=== PATIENT | male | born 1990 ===

== ENCOUNTER 2024-01-31 09:11 | Emergency (ER) | payer MEDICAID, SELFPAY ==
[2024-01-31 09:16] VITALS: BP 141/85; PULSE 63; RESP 16; TEMP 36.2; O2SAT 99; BMI 28.2
--- NOTE | 2024-01-31 10:32 | ED_ITS ---
HPI - Dental/Oral General Chief complaint: Dental/Oral Stated complaint: wisdom tooth pain Time Seen by Provider: 01/31/24 09:45 Source: patient and RN notes reviewed Mode of arrival: ambulatory Limitations: no limitations History of Present Illness ED Provider: Ting Larry PA-C HPI Narrative: This is a 33-year-old male, with no known medical problems, who presents emergency department with complaints of left upper dental pain for the last 3 days. He has known dental fractures in his teeth and has not been able to see a dentist. He recently relocated from [place] and is unable to see a dentist for 3 months. Denies any fevers or chills. No difficulty swallowing. He has been taking panadol for his symptoms which has provided him with minimal relief. No other complaints or concerns at this time. MD Complaint: tooth pain Location: Tooth # (14-15) Onset (ago): day(s) Duration: constant Severity: moderate Relieving factors: nothing Exacerbating factors: nothing Context: history of dental caries and poor dental care Treatment prior to arrival: none Related Data Previous Rx's ?Medication ?Instructions ?Recorded acetaminophen 500 mg tablet 500 mg PO Q6H PRN pain #30 tabs 01/31/24 (Tylenol Extra Strength) amoxicillin 875 mg-potassium 1 tab PO BID 7 days #14 tabs 01/31/24 clavulanate 125 mg tablet ibuprofen 600 mg tablet 600 mg PO Q6H PRN pain #30 tabs 01/31/24 Allergies Allergy/AdvReac Type Severity Reaction Status Date / Time No Known Allergies Allergy Verified 01/31/24 09:17 Review of Systems Review of Systems: Yes all other systems are reviewed and are negative Constitutional: Constitutional: Reports as per [facility] Past Medical History Attestation statement: The following information was validated with the patient. Social History Social History Advance Directives: No Advance Directives Information Provided: No Do you have a plan to hurt others: No Plan Physical Exam Vital Signs: Vital Signs: Last Vital Signs Temp 97.2 F 01/31/24 09:16 Pulse 63 01/31/24 09:16 Resp 16 01/31/24 09:16 BP 141/85 H 01/31/24 09:16 Pulse Ox 99 01/31/24 09:16 O2 Del Method Room Air 01/31/24 09:16 BMI result Body Mass Index 28.2 Const: General: cooperative, comfortable and no acute distress Orientation/consciousness: patient oriented x3 Limitations: no limitations HEENT: Other: Left upper dentition in poor repair, tooth 14. Fifteen are decayed. No rachelle rounding gingival erythema, edema or fluctuance. Head: Yes normal to inspection, Yes normocephalic and Yes atraumatic Ears: hearing grossly normal bilaterally General nose exam: Normal external nose present Face and sinus: Yes normal facial exam Mouth: Normal oral and palatal mucosa present, oropharynx normal and moist mucous membranes Throat: Yes posterior oropharynx normal Eyes: General: appearance normal, both eyes and all related structures Eyelids: Yes eyelids normal Conjunctivae: conjunctivae normal Sclerae: sclerae normal Pupils: Equal, round and reactive pupils present EOM: EOMs intact bilaterally Neck: Neck: Yes normal visual inspection, Yes full ROM and Yes no lymphadenopathy Lymphatic: no lymphadenopathy noted Chest: Chest palpation & inspection: normal inspection of the chest Resp: Effort & Inspection: normal respiratory effort and able to speak in complete sentences Auscultation: clear to auscultation bilaterally, no crackles, no rales, no rhonchi and no wheezes Cardio: Rate: regular rate Rhythm: regular rhythm Heart sounds: S1 normal heart sound present and S2 normal heart sound present GI: Inspection: Yes normal to inspection Skin: General skin exam: no rashes or lesions noted Trauma: no lacerations or abrasions Wounds: no wounds Neuro: General: patient oriented x3 and moves all extremities Cranial nerves: Yes Equal, round and reactive pupils present Extrem: General: Yes normal to inspection Right upper extremity: normal to inspection Left upper extremity: normal to inspection Right lower extremity: normal to inspection Left lower extremity: normal to inspection Medical Decision Making Medical Decision Making MDM Narrative: This is a 33-year-old [place]-speaking male who presents emergency department with complaints of left upper dental pain for the last 3 days. On arrival, patient mildly hypertensive at 141/85. He has poor dentition throughout, with dental decay in his left upper. No obvious dental abscess noted. No I&D required today. Discussed findings with patient. He is aware that he needs to follow up with a dentist. Patient will be discharged on Augmentin, ibuprofen and Tylenol. Patient given strict return precautions. He understands and agrees with plan. He was also given list of dental clinics in the area. Stable for discharge Differential Diagnosis Differential Diagnoses: The differential diagnosis associated with the presentation includes Dental decay, fracture, abscess, TMJ Discharge Plan Discharge Clinical Impression: Dental caries, Dental abscess Patient Disposition: Home, Self-Care Instructions: Dental Abscess (ED) Additional Instructions: You were seen in the emergency department due to dental pain. You need to see a dentist. I am putting you on antibiotics, please finish the entire course even if you are feeling better. Alternate between ibuprofen and Tylenol as needed for pain. If any new or worsening symptoms occur including but not limited to difficulty swallowing, breathing, chest pain, shortness of breath, please return for re-evaluation. Prescriptions: New ibuprofen 600 mg tablet 600 mg PO Q6H PRN (Reason: pain) Qty: 30 0RF acetaminophen [Tylenol Extra Strength] 500 mg tablet 500 mg PO Q6H PRN (Reason: pain) Qty: 30 0RF amoxicillin-pot clavulanate 875-125 mg tablet 1 tab PO BID 7 Days Qty: 14 0RF Print Language: [place]
[2024-01-31 10:41] VITALS: BP 141/85; PULSE 63; RESP 16; TEMP 36.2; O2SAT 99
== END 2024-01-31 10:42 | disposition home or self-care (01) ==
PROVIDERS: Emergency Provider Emergency Medicine
DX: K08.89 Other specified disorders of teeth and supporting structures (principal); K02.9 Dental caries, unspecified; K04.7 Periapical abscess without sinus
CPT/HCPCS: 99283